=== PATIENT | female | born 1955 | race Caucasian/White ===

== ENCOUNTER 2019-04-17 17:30 | Outpatient (CLI) | payer MEDICARE ==
[2012-05-24 08:02] VITALS: BMI 22.5
== END 2019-04-17 18:00 | disposition home or self-care (01) ==
LOC: D.MAMMO 17:30
PROVIDERS: ATTEND Nurse Practitioner Family
DX: Z12.31 Encounter for screening mammogram for malignant neoplasm of breast (principal)